=== PATIENT | female | born 2000 | race Caucasian/White ===

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

== ENCOUNTER 2021-03-26 01:44 | Emergency (ER) | payer BC, OTHER ==
[~2021-03-26] VITALS: Ht 154.9 cm; Wt 68.0 kg
[2021-03-26 01:55] VITALS: BP_SYST 115
--- NOTE | 2021-03-26 01:55 | NUR ---
Patient to ER bed 2 to gown for evaluation. Side rails up.
--- NOTE | 2021-03-26 02:08 | NUR ---
Dr. Tapia [facility] for pt eval
--- NOTE | 2021-03-26 02:12 | NUR ---
Pt BIB family to ED C/O severe Abd pain from "middle" radiating to the R Flank, no Hx at all, otherwise healthy. VSS no s/s of acute distress Resting on gurney rails up
[2021-03-26] MEDS ORDERED: PROCHLORPERAZINE EDISYLATE 10 MG/2 ML VIAL IVP ONE (02:15)
[2021-03-26] MEDS ORDERED: KETOROLAC TROMETHAMINE 30 MG VIAL IVP ONE (02:15)
[2021-03-26] MEDS ORDERED: NACL 0.9% 1,000 ML IV ONE (02:15)
[2021-03-26 02:28] LABS: BILIRUBIN,URINE NEGATIVE (NEGATIVE); BLOOD, URINE NEGATIVE (NEGATIVE); CLARITY/URINE CLEAR (CLEAR); COLOR,URINE YELLOW (YELLOW); GLUCOSE,URINE NEGATIVE (NEGATIVE); KETONES,URINE TRACE (NEGATIVE); LEUKOCYTE ESTERASE ,URINE NEGATIVE (NEGATIVE); NITRITE, URINE NEGATIVE (NEGATIVE); PROTEIN URINE NEGATIVE (NEGATIVE); UROBILINOGEN,URINE 0.2 (0.2-1.0)
--- NOTE | 2021-03-26 02:42 | NUR ---
Pt states " feeling a little better " Dr. Tapia aware
--- NOTE | 2021-03-26 02:46 | NUR ---
IVF + meds well tolerated
[2021-03-26 02:59] LABS: BASOPHILS # (AUTO) 0.1 K/uL (0.0-0.2); BASOPHILS % (AUTO) 0.5 % (0.0-2.0); EOSINOPHILS # (AUTO) 0.4 K/uL (0.0-0.4); EOSINOPHILS % (AUTO) 3.2 % (0.0-4.0); HEMATOCRIT 39.4 % (36-48); HEMOGLOBIN 13.3 g/dL (12.0-16.0); LYMPHOCYTES # (AUTO) 3.7 K/uL (1.0-5.5); LYMPHOCYTES % (AUTO) 29.6 % (20.5-51.5); MEAN CORPUSCULAR HEMOGLOBIN 29 pg (27-31); MEAN CORPUSCULAR HGB CONC 34 % (32-36); MEAN CORPUSCULAR VOLUME 85 fL (79.0-98.0); MONOCYTES # (AUTO) 0.8 K/uL (0.0-1.0); MONOCYTES % (AUTO) 6.2 % (1.7-9.3); NEUTROPHILS # (AUTO) 7.5 K/uL (1.8-7.7); NEUTROPHILS % (AUTO) 60.5 % (40.0-70.0); PLATELET COUNT (AUTO) 282 K/uL (130-430); RED BLOOD CELL COUNT(AUTO) 4.64 MIL/uL (4.2-6.2); RED CELL DISTRIBUTION WIDTH 12.1 % (9.0-15.0); WHITE BLOOD COUNT (AUTO) 12.4 K/uL (4.8-10.8)
[2021-03-26 03:04] LABS: CALCIUM 9.2 mg/dL (8.4-11.0); CREATININE 0.67 mg/dL (0.55-1.30); POTASSIUM 3.5 mmol/L (3.5-5.1)
--- NOTE | 2021-03-26 03:07 | NUR ---
Pt taken to Radiology in stable condition
[2021-03-26 03:09] LABS: TOTAL BILIRUBIN 0.1 mg/dL (0.0-1.0)
--- NOTE | 2021-03-26 03:10 | NUR ---
Pt back from Radiology, well tolerated
--- NOTE | 2021-03-26 03:52 | NUR ---
Resting in comfort on gurney rails up
--- NOTE | 2021-03-26 04:01 | NUR ---
Dr. Tapia [facility] for pt update
[2021-03-26] MEDS ORDERED: HYOS-26 PO (04:12)
[2021-03-26 04:20] VITALS: BP_SYST 115
--- NOTE | 2021-03-26 04:20 | NUR ---
Patient given written and verbal discharge instructions and verbalizes understanding. ER MD discussed with patient the results and treatment provided. Patient in stable condition. ID arm band removed. IV catheter removed intact and dressing applied, no active bleeding. Rx of Levsin given. Patient educated on pain management and to follow up with PMD. Pain Scale 0/10 Opportunity for questions provided and answered. Medication side effect fact sheet provided.
== END 2021-03-26 04:20 | disposition home or self-care (01) ==
LOC: SED 01:44
DX: R10.84 Generalized abdominal pain (principal); Z79.899 Other long term (current) drug therapy
CPT/HCPCS: 36415; 74021; 80053; 81003; 83690; 85025; 96361; 96374; 96375; 99284; J0780; J1885; J7030